=== PATIENT | male | born 1985 | race Caucasian/White ===

== ENCOUNTER 2022-12-09 05:40 | Day surgery (SDC) | payer OTHER ==
[~2022-12-09] VITALS: Ht 190.5 cm; Wt 103.2 kg
[~2022-12-09 05:40] MED LIST: LEVOTHYROXINE100 MC2 PO; TYLENOL WITH C1 EACH PO
[2022-12-09] MEDS ORDERED: DICLOFENAC SODI75 MG PO (07:47)
--- NOTE | 2022-12-09 07:47 | NUR ---
12/09/22 0747 Tabitha Luo PT TO PACU SLEEPING ORAL AIRWAY IN PLACE, O2 VIA MASK, JAW THRUST NEEDED TO MAINTAIN AIRWAY, FOGGING NOTED IN MASK.
[2022-12-09] MEDS ORDERED: HYDROCODON-ACE1 EA11 PO (07:48)
--- NOTE | 2022-12-09 09:24 | NUR ---
LE 0805 PATIENT BACK FROM PACU. REPORT RECIEVED FROM NOEMI P[place]TMAN. PATIENT IS ALERT AND ORIENTD. BREATHING EQUAL AND UNLABORED. OXYGEN SATURATIONS ABOVE 95% ON ROOM AIR. PATIENT STATES PAIN IS TOLERABLE AND DENIES NEEDING PAIN MEDICINE. SURGICAL SITE CLEAN, DRY AND INTACT. SCD'S ON. IVF INFUSING. AT BEDSIDE CALL LIGHT WITHIN REACH NO FUTHER NEEDS. NO QUESTIONS AT THIS TIME.
--- NOTE | 2022-12-09 09:26 | NUR ---
LE 0844 PATIENT GIVEN PRN PAIN MEDICINE STATES PAIN IS A 7/10 AT SURGICAL SITE. DENIES BEING NAUSEATED. EATING JELLO AND DRINKING WATER. PATIENT KNEE ELEVATED BY PILLOWS AND ICE APPLIED TO SURGICAL SITE. CALL LIGHT WITHIN REACH NO FUTHER NEEDS. NO QUESTIONS AT THIS TIME. LE 0900 PATIENT UP TO RESTROOM. PATIENT TOLERATING AMBULATION. PATIENT BACK TO ROOM. PATIENT STATES PAIN IS A 3/10 NOW AND TOLERABLE. SURGICAL SITE CLEAN, DRY AND INTACT. LE 0913 PATIENT HAS MET DISCHARGE CRITERIA. PATIENT GOT DRESSED AND DISCHARGE INSTURCTIONS GIVEN AND UNDERSTOOD. NO QUESTIONS AT THIS TIME. IV D/C'D WNL. PATIENT WHEELED OUT OF FACILITY TO PRIVATE AUTO. NO FUTHER NEEDS.
--- NOTE | 2022-12-12 10:16 | OR ---
[facility] [address], [place] [address] Signed DATE OF OPERATION: 12/09/2022 SURGEON: Tamie Luo MD PREOPERATIVE DIAGNOSIS: Medial meniscus tear, left knee. POSTOPERATIVE DIAGNOSIS: Medial meniscus tear, left knee. PROCEDURE PERFORMED: Left knee arthroscopy with partial medial meniscectomy. LOGGING WORKER: None. ANESTHESIA: General anesthetic. BLOOD LOSS: Minimal. BRIEF HISTORY: Min is a 37-year-old gentleman with pain and locking in his knee. MRI was consistent with a fairly large posteromedial meniscus tear. Risks and benefits of operative treatment were discussed with him. He elected to proceed. Once consent was obtained, he was taken to the operating room after adequate anesthesia. He was placed on operating room table. The right leg was flexed, abducted and externally rotated in well-padded leg garcia. The left leg was placed in a proximal thigh leg garcia with no tourniquet. The leg was then prepped and draped in a standard sterile fashion and the portal sites were injected with 0.25% Marcaine with epinephrine. Standard inferolateral and superolateral portals were made and the scope was introduced into the knee. Moderate synovitis was noted throughout the knee, primarily anteriorly and medially. The patella was noted to be intact and track well. 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 The medial and lateral femoral condyles were intact as were the tibia. The lateral meniscus was intact. ACL was intact. Medial compartment showed grade 2 chondromalacia on the tibial side and several grade 2-3 lesions in the medial femoral condyle, but they were small. The meniscus was noted to be torn. The midportion of the posterior horn extending around to the mid body. There were sutures from prior repair. Electronically Signed By: TAMIE LUO MD 12/12/22 1016 PATIENT NAME: MIN CHU OPERATIVE REPORT DATE OF : 83 REPORT #: [id number] PHYSICIAN: TAMIE LUO MD PCP: STEVIE NICHOLS MD REPORT IS CONFIDENTIAL AND NOT TO BE RELEASED WITHOUT AUTHORIZATION [facility] [address], [place] [address] Signed DESCRIPTION OF PROCEDURE: Standard inferomedial portal was made after localization using a spinal needle. The straight and curved biters were then used to trim the meniscus tear back to a stable rim. The meniscus was then shaved down with the shaver, feathered out and smoothed. All debris was evacuated. The scope was then withdrawn. Portals were closed with 3-0 nylon and the knee was injected with 60 mg Toradol at the end of the case. The wounds were then dressed with Adaptic, ABD, and Rolly wrap. He tolerated the procedure well. All sponge, needle, and instrument counts were correct. Tamie Luo MD BA/ALEJANDRAL /[id number] Copies: ~ Electronically Signed By: TAMIE LUO MD 12/12/22 1016 PATIENT NAME: MIN CHU OPERATIVE REPORT DATE OF : 83 REPORT #: [id number] PHYSICIAN: TAMIE LUO MD PCP: STEVIE NICHOLS MD REPORT IS CONFIDENTIAL AND NOT TO BE RELEASED WITHOUT AUTHORIZATION
== END 2022-12-09 09:13 | disposition home or self-care (01) ==
LOC: DS 05:40
PROVIDERS: ATTEND Specialist
PROC: 0SBD4ZZ Excision of Left Knee Joint, Percutaneous Endoscopic Approach (ICD-10-PCS; principal; 2022-12-09 07:30)
DX: S83.242A Other tear of medial meniscus, current injury, left knee, initial encounter (principal); E03.9 Hypothyroidism, unspecified
CPT/HCPCS: A9270; J0690; J1100; J1885; J2250; J2405; J2704; J2765; J3010; J7121